=== PATIENT | female | born 1960 | race Caucasian/White ===

== ENCOUNTER 2018-03-13 12:39 | Emergency (ER) | payer MEDICAID ==
[~2018-03-13] VITALS: Ht 165.1 cm; Wt 68.2 kg
[2018-03-13 12:47] VITALS: BP 128/78
== END 2018-03-13 14:23 | disposition home or self-care (01) ==
LOC: ER 12:39
DX: M25.561 Pain in right knee (principal); M25.461 Effusion, right knee
CPT/HCPCS: 29505; 73564; 99284